=== PATIENT | male | born 1995 | race African-American/Black ===

== ENCOUNTER 2024-02-23 02:17 | Emergency (ER) | payer SELFPAY ==
[2024-02-23] MEDS ORDERED: Ondansetron ODT 4 MG TAB ONE (03:00)
== END 2024-02-23 03:20 | disposition home or self-care (01) ==
LOC: CSHERS 02:17
DX: R19.7 Diarrhea, unspecified (principal); R11.2 Nausea with vomiting, unspecified; M79.10 Myalgia, unspecified site; R10.9 Unspecified abdominal pain; F17.200 Nicotine dependence, unspecified, uncomplicated; F17.290 Nicotine dependence, other tobacco product, uncomplicated
CPT/HCPCS: 99284; Q0162

== ENCOUNTER 2024-04-21 23:47 | Emergency (ER) | payer SELFPAY | END 2024-04-22 00:16 | disposition home or self-care (01) | LOC: CSHERS 23:47 | DX: J06.9 Acute upper respiratory infection, unspecified (principal); F17.290 Nicotine dependence, other tobacco product, uncomplicated; Z55.6 Problems related to health literacy | CPT/HCPCS: 99283 ==